=== PATIENT | female | born 1990 | race Caucasian/White ===

== ENCOUNTER 2022-02-03 13:09 | Emergency (ER) | payer MEDICAID, OTHER ==
[~2022-02-03] VITALS: Ht 170.2 cm; Wt 59.1 kg
[2022-02-03 13:29] VITALS: BP 130/82
[2022-02-03] MEDS ORDERED: PSEU120T84 PO (14:23)
== END 2022-02-03 15:35 | disposition home or self-care (01) ==
LOC: ER 13:12
DX: H65.93 Unspecified nonsuppurative otitis media, bilateral (principal); F17.200 Nicotine dependence, unspecified, uncomplicated; Z79.899 Other long term (current) drug therapy
CPT/HCPCS: 99282

== ENCOUNTER 2022-03-09 08:01 | Emergency (ER) | payer MEDICAID ==
[~2022-03-09] VITALS: Ht 170.2 cm; Wt 59.1 kg
[~2022-03-09 08:01] MED LIST: PSEU120T84 PO
[2022-03-09 08:09] VITALS: BP 137/82
== END 2022-03-09 09:09 | disposition home or self-care (01) ==
LOC: ER 08:02
DX: H69.81 Other specified disorders of Eustachian tube, right ear (principal); H92.02 Otalgia, left ear; Z79.899 Other long term (current) drug therapy
CPT/HCPCS: 99281

== ENCOUNTER 2024-12-23 11:25 | Emergency (ER) | payer MEDICAID ==
[~2024-12-23] VITALS: Ht 167.6 cm; Wt 58.8 kg
[2024-12-23 11:31] VITALS: TEMP 97.3
[2024-12-23 12:38] LABS: BASOPHILS % (AUTO) 0.1 % (0-1); EOSINOPHILS % (AUTO) 0.1 % (0-6); HEMATOCRIT 41.6 % (35.0-45.0); LYMPHOCYTES # (AUTO) 1.7 X10'3 (1.1-4.8); LYMPHOCYTES % (AUTO) 8.6 % (21-51); MEAN CORPUSCULAR HEMOGLOBIN 31.3 PG (27.0-31.0); MEAN CORPUSCULAR HGB CONC 33.6 g/dL (33.0-36.5); MEAN CORPUSCULAR VOLUME 93.2 FL (78-98); MONOCYTES % (AUTO) 5.1 % (2-12); NEUTROPHILS % (AUTO) 86.1 % (42-75); PLATELET COUNT 226 X10'3 (140-440); RED BLOOD COUNT 4.47 X10'6 (4.20-5.60); RED CELL DISTRIBUTION WIDTH 13.3 % (11.5-14.5); WHITE BLOOD COUNT 19.8 X10'3 (4.5-11.0)
[2024-12-23 12:42] LABS: URINE HCG NEGATIVE (NEG)
[2024-12-23 12:43] LABS: BILIRUBIN,URINE NEGATIVE (Neg); CLARITY,URINE CLEAR (Clear); COLOR,URINE YELLOW (Yellow); GLUCOSE, URINE NEGATIVE (Neg); KETONES,URINE NEGATIVE (Neg); LEUKOCYTE ESTERASE ,URINE SMALL (Neg); NITRITES, URINE NEGATIVE (Neg); OCCULT BLOOD,URINE SMALL (Neg); PROTEIN,URINE NEGATIVE (Neg)
[2024-12-23 12:48] LABS: UA COLLECTION TYPE CLN CATCH MIDSTREAM
[2024-12-23 12:54] LABS: BACTERIA,URINE FEW /HPF (Neg); MUCUS STRANDS FEW /LPF (Neg); SQUAMOUS EPITHELIAL CELL,UR MODERATE /LPF (FEW); TRANSITIONAL EPI CELLS,URINE MODERATE /HPF; WBC CLUMPS,URINE FEW /HPF (NEGATIVE); WBC,URINE 30-50 /HPF (0-4)
[2024-12-23 13:00] LABS: ALANINE AMINOTRANSFERASE 25 U/L (12-78); ALBUMIN 3.8 G/DL (3.4-5.0); ALBUMIN/GLOBULIN RATIO 1.1 (1.1-1.5); ALKALINE PHOSPHATASE 68 IU/L (46-116); ANION GAP 9 (8-16); ASPARTATE AMINO TRANSFERASE 15 U/L (10-37); BILIRUBIN,TOTAL 1.4 MG/DL (0.1-1.0); BLOOD UREA NITROGEN 6 MG/DL (7-18); BUN/CREATININE RATIO 8.8 (10.0-20.0); CALCIUM 8.8 MG/DL (8.5-10.1); CHLORIDE 103 MMOL/L (99-107); CREATININE 0.68 MG/DL (0.40-0.90); GLUCOSE 93 MG/DL (70-104); LIPASE 15 U/L (16-77); POTASSIUM 3.5 MMOL/L (3.5-5.1); SODIUM 135 MMOL/L (135-145); TOTAL CARBON DIOXIDE 22.6 MMOL/L (24-32); TOTAL PROTEIN 7.4 G/DL (6.4-8.2); eCRCL 108 ML/MIN; eGFR > 90 ML/MIN
[2024-12-23] MEDS ORDERED: MAGN296S68 PO (14:21)
[2024-12-23] MEDS ORDERED: CEPH-585 PO (14:21)
[2024-12-23 14:26] VITALS: BP 118/69; PULSE 60; RESP 16; O2SAT 98
== END 2024-12-23 14:28 | disposition home or self-care (01) ==
LOC: ER 11:26
DX: N39.0 Urinary tract infection, site not specified (principal); K59.00 Constipation, unspecified; Z79.899 Other long term (current) drug therapy
CPT/HCPCS: 36415; 74018; 80053; 81001; 81025; 83690; 85025; 87088; 99284

== ENCOUNTER 2025-02-24 22:00 | Emergency (ER) | payer MEDICAID, OTHER ==
[~2025-02-24] VITALS: Ht 170.2 cm; Wt 45.4 kg
[~2025-02-24 22:00] MED LIST changes: +CEPH-585 PO; +MAGN296S68 PO
[2025-02-24 22:22] VITALS: BP 127/79; PULSE 89; RESP 18; TEMP 97.2; O2SAT 99
--- NOTE | 2025-02-24 23:14 | Physician Documentation ---
History of Present Illness ~ Chief Complaint: Urinary Symptoms Stated Complaint: UTI Primary Medical Doctor: [facility] HPI This is a 35-year-old female who presents with concern for urinary tract infection, patient reports pain in her suprapubic abdomen radiating to her low back, patient reports this is similar to previous UTIs. Patient reports no fevers. Medication Reconciliation Allergies: Coded Allergies: No Known Allergies (Unverified , 02/03/22) Scheduled Cephalexin*Monohydrate* (Keflex*), 1 CAP PO QID Magnesium Citrate (MAGNESIUM CITRATE oral solution), 296 ML PO ONCE Pseudoephedrine Hcl (Pseudoephedrine), 1 TAB PO Q12H Past Medical History Past Medical History: No Pertinent History Past Surgical History: noncontributory Alcohol Use: None Drug Use: none Lives In: Home Physical Exam Vital Signs: Temperature: 97.2, Source: Temporal, Heart Rate: 89, Respiratory Rate: 18, BP: 127/79, Pulse Oximetry: 99, Weight: 45.360 Oxygen Flow Rate: 0 Physical Exam VITALS: Reviewed and as above. GENERAL: Alert, nontoxic appearing, no apparent distress. HEENT: RESPIRATORY: No increased work of breathing, no respiratory distress, speaking in full clear sentences CHEST: CV: BACK: No CVA tenderness GI: MUSCULOSKELETAL: SKIN: NEURO: PSYCH: Progress Results/Orders Results/Orders Vital Signs 02/24/25 22:22 Temp 97.2 Pulse 89 Resp 18 B/P (MAP) 127/79 Pulse Ox 99 O2 Flow Rate 0 Medical Decision Making Findings MSE performed in triage and patient returned to ED lobby by nursing staff Departure Referrals: NO PRIMARY CARE PROVIDER (PCP) JORGE MCCOYP Feb 24, 2025 23:14
[2025-02-24 23:23] LABS: BILIRUBIN,URINE NEGATIVE (Neg); CLARITY,URINE CLEAR (Clear); COLOR,URINE YELLOW (Yellow); GLUCOSE, URINE NEGATIVE (Neg); KETONES,URINE NEGATIVE (Neg); LEUKOCYTE ESTERASE ,URINE NEGATIVE (Neg); NITRITES, URINE NEGATIVE (Neg); OCCULT BLOOD,URINE SMALL (Neg); PROTEIN,URINE NEGATIVE (Neg); UROBILINOGEN,URINE 0.2 E.U/dL (0.2-1.0)
[2025-02-24 23:24] LABS: UA COLLECTION TYPE CLN CATCH MIDSTREAM
[2025-02-24 23:29] LABS: URINE HCG NEGATIVE (NEG)
[2025-02-24 23:31] LABS: BACTERIA,URINE FEW /HPF (Neg); RBC,URINE 0-2 /HPF (0-2)
[2025-02-24 23:32] LABS: SQUAMOUS EPITHELIAL CELL,UR FEW /LPF (FEW)
[2025-02-25 00:56] LABS: BASOPHILS % (AUTO) 0.4 % (0-1); EOSINOPHILS # (AUTO) 0.3 X10'3 (0-0.9); EOSINOPHILS % (AUTO) 3.4 % (0-6); HEMATOCRIT 39.1 % (35.0-45.0); HEMOGLOBIN 13.3 g/dl (12.0-16.0); LYMPHOCYTES # (AUTO) 3.5 X10'3 (1.1-4.8); LYMPHOCYTES % (AUTO) 39.2 % (21-51); MEAN CORPUSCULAR HEMOGLOBIN 31.1 PG (27.0-31.0); MEAN CORPUSCULAR HGB CONC 34.1 g/dL (33.0-36.5); MEAN CORPUSCULAR VOLUME 91.4 FL (78-98); MEAN PLATELET VOLUME 7.2 FL (7.4-10.4); MONOCYTES # (AUTO) 0.6 X10'3 (0-0.9); MONOCYTES % (AUTO) 7.3 % (2-12); NEUTROPHILS # (AUTO) 4.4 X10'3 (1.8-7.7); NEUTROPHILS % (AUTO) 49.7 % (42-75); PLATELET COUNT 261 X10'3 (140-440); RED BLOOD COUNT 4.28 X10'6 (4.20-5.60); RED CELL DISTRIBUTION WIDTH 14.1 % (11.5-14.5); WHITE BLOOD COUNT 8.8 X10'3 (4.5-11.0)
[2025-02-25 01:19] LABS: ALANINE AMINOTRANSFERASE 33 U/L (12-78); ALBUMIN 3.8 G/DL (3.4-5.0); ALBUMIN/GLOBULIN RATIO 1.4 (1.1-1.5); ALKALINE PHOSPHATASE 58 IU/L (46-116); ANION GAP 6 (8-16); ASPARTATE AMINO TRANSFERASE 20 U/L (10-37); BILIRUBIN,TOTAL 0.3 MG/DL (0.1-1.0); BLOOD UREA NITROGEN 11 MG/DL (7-18); BUN/CREATININE RATIO 11.3 (10.0-20.0); CALCIUM 8.6 MG/DL (8.5-10.1); CHLORIDE 105 MMOL/L (99-107); CREATININE 0.97 MG/DL (0.40-0.90); GLUCOSE 92 MG/DL (70-104); LIPASE 35 U/L (16-77); POTASSIUM 3.3 MMOL/L (3.5-5.1); SODIUM 139 MMOL/L (135-145); TOTAL CARBON DIOXIDE 27.9 MMOL/L (24-32); TOTAL PROTEIN 6.5 G/DL (6.4-8.2); eCRCL 58 ML/MIN; eGFR 65 ML/MIN
[2025-02-25] MEDS ORDERED: PHEN-786 PO (13:49)
[2025-02-25] MEDS ORDERED: SULF1TAB49 PO (13:49)
== END 2025-02-25 03:59 | disposition left against medical advice (07) ==
LOC: ER 22:00
DX: N39.0 Urinary tract infection, site not specified (principal); Z79.899 Other long term (current) drug therapy
CPT/HCPCS: 36415; 80053; 81001; 81025; 83690; 85025; 87088; 99283

== ENCOUNTER 2025-02-25 12:18 | Emergency (ER) | payer OTHER ==
[~2025-02-25] VITALS: Ht 170.2 cm; Wt 60.1 kg
[2025-02-25 12:28] VITALS: BP 142/98; PULSE 68; RESP 15; O2SAT 99
--- NOTE | 2025-02-25 13:44 | Physician Documentation ---
History of Present Illness General Chief Complaint: Urinary Symptoms Stated Complaint: URINARY COMPLICATIONS Time Seen by MD: 12:59 Primary Medical Doctor: [facility] History of Present Illness Initial Comments 35-year-old female who presents to the emergency department with urinary tract symptoms such as dysuria, frequency urgency and some mild lower back pain with nausea. Reports having a recent UTI that is has been unresolved. Denies risk of . Medication Reconciliation Allergies: Coded Allergies: No Known Allergies (Unverified , 02/03/22) Scheduled Cephalexin*Monohydrate* (Keflex*), 1 CAP PO QID Magnesium Citrate (MAGNESIUM CITRATE oral solution), 296 ML PO ONCE Pseudoephedrine Hcl (Pseudoephedrine), 1 TAB PO Q12H Past Medical History Past Medical History: No Pertinent History Past Surgical History: noncontributory Alcohol Use: None Drug Use: none Lives In: Home Review of Systems Constitutional: Denies: fever, chills GI: Reports: nausea; Denies: abdominal pain, vomiting : Reports: dysuria, discharge, frequency; Denies: flank pain, hematuria, vaginal bleeding Physical Exam Physical Exam Vital Signs: RN Vital Signs have been reviewed: Yes, Temperature: 98.5, Source: Temporal, Heart Rate: 68, Respiratory Rate: 15, BP: 142/98, Pulse Oximetry: 99, Weight: 60.100 General Appearance: alert, WD/WN, mild distress Head: normal inspection Face: normal inspection Pupils/EOM/Fundus: PERRLA Extremities: normal range of motion Neurologic: oriented x4 Motor / Sensory: no motor deficit Psychiatric: normal mood/affect Skin: normal color Progress Results/Orders Results/Orders Orders - MARY ELLEN SANCHEZ PAC Urinalysis, Cult If Indicated (02/25/25 13:34) Ceftriaxone Im Kit W/Lidocaine (Rocephin (02/25/25 13:45) Vital Signs 02/25/25 12:28 Temp 98.5 Pulse 68 Resp 15 B/P (MAP) 142/98 Pulse Ox 99 Laboratory Tests Test 02/25/25 12:31 Urine Comment Medical Decision Making Differential Diagnosis 35-year-old female presents to the emergency department with UTI symptoms. We will treat with Ceftriaxone due to recent UTI of the has not cleared and early signs of pyelo. Patient received Rocephin and was discharged safe stable condition to continue with outpatient antibiotics and Pyridium as directed. She understands to return for fever flank pain or nausea and vomiting. She was discharged in stable condition. Departure Disposition: 01 HOME / SELF CARE / HOMELESS Impression: Primary Impression: UTI (urinary tract infection) Qualified Codes: N30.00 - Acute cystitis without hematuria Condition: Stable Discharge Instructions: Dysuria, Urinary Tract Infection, Adult Additional Instructions: In the emergency department you received an injection of Ceftriaxone two thought kidney infection. Please begin prescriptions and seek follow up in 5-7 days for test of cure urinalysis. Return to the emergency department for fever, flank pain or nausea or vomiting. Thank you for visiting emergency department [facility]. Referrals: NO PRIMARY CARE PROVIDER (PCP) Prescriptions Phenazopyridine Hcl (Pyridium tablet) 100 Mg Tablet 1 TAB PO Q8H PRN for dysuria, #12 TAB Prov: MARY ELLEN SANCHEZ 02/25/25 Sulfamethoxazole/Trimethoprim (Bactrim Ds Tablet) 800 Mg-160 Mg Tablet 1 TAB PO Q12H for 10 Days, #20 TAB Prov: MARY ELLEN SANCHEZ 02/25/25 Education Educated: Patient Educated regarding: diagnosis, treatment Signature Scribe Signature: . Attestation: MARY ELLEN EAST Feb 25, 2025 13:44
[2025-02-25] MEDS ORDERED: PHEN-786 PO (13:49)
[2025-02-25] MEDS ORDERED: SULF1TAB49 PO (13:49)
[2025-02-25 13:55] LABS: BILIRUBIN,URINE NEGATIVE (Neg); CLARITY,URINE SLIGHTLY CLOUDY (Clear); COLOR,URINE STRAW (Yellow); GLUCOSE, URINE NEGATIVE (Neg); KETONES,URINE NEGATIVE (Neg); LEUKOCYTE ESTERASE ,URINE NEGATIVE (Neg); NITRITES, URINE NEGATIVE (Neg); OCCULT BLOOD,URINE TRACE-INTACT (Neg); PH,URINE 7.5 (4.8-8.0); PROTEIN,URINE NEGATIVE (Neg); UROBILINOGEN,URINE 0.2 E.U/dL (0.2-1.0)
[2025-02-25] MEDS: CefTRIAXone 1000mg IM Kit (w/lidocaine diluent) IM ONE (13:56)
[2025-02-25 14:05] LABS: UA COLLECTION TYPE CLN CATCH MIDSTREAM
[2025-02-25 14:12] VITALS: TEMP 98.5
[2025-02-25 14:12] LABS: AMORPHOUS PHOSPHATES 4+; BACTERIA,URINE FEW /HPF (Neg); MUCUS STRANDS NONE SEEN /LPF (Neg); RBC,URINE 0-2 /HPF (0-2); SQUAMOUS EPITHELIAL CELL,UR NONE SEEN /LPF (FEW); WBC,URINE 0-4 /HPF (0-4)
== END 2025-02-25 14:13 | disposition home or self-care (01) ==
LOC: ER 12:19
DX: N39.0 Urinary tract infection, site not specified (principal); R11.0 Nausea; Z79.899 Other long term (current) drug therapy
CPT/HCPCS: 81001; 96372; 99283; J0696